=== PATIENT | male | born 1975 | race Caucasian/White ===

== ENCOUNTER 2020-06-14 04:43 | Emergency (ER) | payer OTHER ==
[~2020-06-14] VITALS: Ht 200.7 cm; Wt 115.7 kg
[~2020-06-14 04:43] MED LIST: ABILIFY MAINTE300 M1 IM; ABILIFY20 MG PO; ALDACTONE25 MG PO; ARIPIPRAZOLE5 MG PO; ATIVAN1 MG PO; KEFLEX500 M1 PO; KRISTALOSE20 GM PO; NORVASC5 MG PO; PREDNISONE 10 M10 MG PO; PROBIOTIC1 EAC1 PO; PROTONIX40 M1 PO; ROBAXIN 750 MG750 M1 PO; XANAX1 MG PO; XIFAXAN550 M1 PO; ZANAFLEX4 MG PO; ZOLOFT25 MG PO
[2020-06-14 04:54] VITALS: BP 133/82
[2020-06-14] MEDS ORDERED: GABAPENTIN100 MG PO (05:21)
[2020-06-14] MEDS ORDERED: HYDROCODON-ACE1 EAC7 PO (05:21)
== END 2020-06-14 05:31 | disposition home or self-care (01) ==
LOC: M.ERS 04:43
DX: B02.29 Other postherpetic nervous system involvement (principal); Z88.6 Allergy status to analgesic agent; Z91.018 Allergy to other foods

== ENCOUNTER 2020-07-24 07:22 | Emergency (ER) | payer OTHER ==
[~2020-07-24] VITALS: Ht 200.7 cm; Wt 117.9 kg
[~2020-07-24 07:22] MED LIST changes: +GABAPENTIN100 MG PO; +HYDROCODON-ACE1 EAC7 PO
[2020-07-24] MEDS ORDERED: FLEXERIL PO (08:00)
[2020-07-24] MEDS ORDERED: GABAPENTIN 100100 MG PO (08:00)
[2020-07-24] MEDS ORDERED: NORCO 5-325 TA1 EAC2 PO (08:00)
[2020-07-24 08:07] VITALS: BP 140/78
== END 2020-07-24 08:08 | disposition home or self-care (01) ==
LOC: M.ERS 07:22
DX: M54.5 Low back pain (principal); Z91.018 Allergy to other foods; Z88.6 Allergy status to analgesic agent; Z90.49 Acquired absence of other specified parts of digestive tract; Z90.89 Acquired absence of other organs

== ENCOUNTER 2020-08-12 06:33 | Emergency (ER) | payer OTHER ==
[~2020-08-12] VITALS: Ht 200.7 cm; Wt 104.3 kg
[~2020-08-12 06:33] MED LIST changes: +FLEXERIL PO; +GABAPENTIN 100100 MG PO; +NORCO 5-325 TA1 EAC2 PO
[2020-08-12] MEDS ORDERED: MUSCLE RELAXANT (06:46)
[2020-08-12] MEDS ORDERED: FLEXERIL PO (07:21)
[2020-08-12] MEDS ORDERED: IBUPROFEN 800800 M1 PO (07:21)
[2020-08-12] MEDS ORDERED: NORCO 5-325 TA1 EAC2 PO (07:21)
[2020-08-12 07:28] VITALS: BP 138/72
== END 2020-08-12 07:28 | disposition home or self-care (01) ==
LOC: M.ERS 06:33
DX: M54.5 Low back pain (principal); F17.210 Nicotine dependence, cigarettes, uncomplicated; Z88.6 Allergy status to analgesic agent; Z91.018 Allergy to other foods; Z90.89 Acquired absence of other organs; Z90.49 Acquired absence of other specified parts of digestive tract

== ENCOUNTER 2020-08-18 22:54 | Emergency (ER) | payer OTHER ==
[~2020-08-18] VITALS: Ht 200.7 cm; Wt 99.8 kg
[~2020-08-18 22:54] MED LIST changes: +IBUPROFEN 800800 M1 PO; +MUSCLE RELAXANT
[2020-08-18] MEDS ORDERED: BACLOFEN 10MG T10 MG PO (23:29)
[2020-08-18] MEDS ORDERED: FLEXERIL PO (23:29)
[2020-08-18 23:46] VITALS: BP 146/72
== END 2020-08-18 23:46 | disposition home or self-care (01) ==
LOC: M.ERS 22:54
DX: M54.6 Pain in thoracic spine (principal); Z88.6 Allergy status to analgesic agent; Z91.018 Allergy to other foods; Z90.49 Acquired absence of other specified parts of digestive tract; Z90.89 Acquired absence of other organs

== ENCOUNTER 2020-08-25 04:17 | Emergency (ER) | payer OTHER ==
[~2020-08-25] VITALS: Ht 200.7 cm; Wt 103.0 kg
[~2020-08-25 04:17] MED LIST changes: +BACLOFEN 10MG T10 MG PO
[2020-08-25 04:25] VITALS: BP 129/79
[2020-08-25] MEDS ORDERED: MEDROL DOSPAK21 TA1 PO (04:28)
[2020-08-25] MEDS ORDERED: DRIZALMA SPRINK60 MG PO (04:31)
[2020-08-25] MEDS ORDERED: HYDROCODON-ACE1 EAC7 PO (04:52)
[2020-08-25] MEDS ORDERED: TORADOL 10 MG T10 MG PO (04:52)
== END 2020-08-25 05:06 | disposition home or self-care (01) ==
LOC: M.ERS 04:17
DX: G89.29 Other chronic pain (principal); M54.5 Low back pain; Z88.6 Allergy status to analgesic agent; Z79.899 Other long term (current) drug therapy; Z90.49 Acquired absence of other specified parts of digestive tract

== ENCOUNTER → 2020-09-01 | Outpatient (CLI) | payer OTHER ==
[~2020-09-01] MED LIST changes: +DRIZALMA SPRINK60 MG PO; +MEDROL DOSPAK21 TA1 PO; +NEURONTIN 300M300 M2 PO; +TORADOL 10 MG T10 MG PO
== END ==
LOC: M.PC 08:00
PROVIDERS: ATTEND Physical Medicine & Rehabilitation
DX: M47.816 Spondylosis without myelopathy or radiculopathy, lumbar region (principal); M51.36 Other intervertebral disc degeneration, lumbar region; M47.814 Spondylosis without myelopathy or radiculopathy, thoracic region; M51.24 Other intervertebral disc displacement, thoracic region; Z88.8 Allergy status to other drugs, medicaments and biological substances; Z79.899 Other long term (current) drug therapy

== ENCOUNTER 2020-12-11 07:36 | Emergency (ER) | payer OTHER ==
[~2020-12-11] VITALS: Ht 200.7 cm; Wt 106.6 kg
[2020-12-11 07:43] VITALS: BP 122/72
[2020-12-11] MEDS ORDERED: MOBIC7.5 MG PO (07:53)
[2020-12-11] MEDS ORDERED: MEDROLDOSEPACK PO (07:53)
== END 2020-12-11 08:05 | disposition home or self-care (01) ==
LOC: M.ERS 07:36
DX: G89.29 Other chronic pain (principal); M54.5 Low back pain; Z88.6 Allergy status to analgesic agent; Z91.018 Allergy to other foods; Z90.49 Acquired absence of other specified parts of digestive tract; Z90.89 Acquired absence of other organs

== ENCOUNTER 2021-02-10 09:10 | Inpatient (IN) | payer OTHER ==
[2021-02-10] VITALS (11 sets, daily range): BP systolic 81–109; BP diastolic 51–70
[~2021-02-10] VITALS: Ht 200.7 cm; Wt 106.1 kg
[~2021-02-10 09:10] MED LIST changes: +MEDROLDOSEPACK PO; +MOBIC7.5 MG PO
[2021-02-10 09:44] LABS: HEMATOCRIT 42.8 % (42.0-52.0); HEMOGLOBIN 14.5 gm/dL (14.0-18.0); MCH 31.6 pg (26.0-34.0); MCHC 33.9 g/dL (28.0-37.0); MCV 93.4 fL (80.0-100.0); MPV 9.1 fl. (7.2-11.1); NUCLEATED RBCS 0 /100WBC; PLATELET COUNT* 141 thou/uL (150-400); RBC 4.58 mil/uL (4.50-6.00); RDW-CV 13.5 % (10.5-14.5); WBC 20.1 thou/uL (4.0-11.0)
[2021-02-10 09:54] LABS: CALCIUM 8.6 mg/dL (8.5-10.1); CREATININE 1.8 mg/dL (0.6-1.3); POTASSIUM 3.5 mmol/L (3.5-5.1)
[2021-02-10 10:04] LABS: ALBUMIN 3.8 g/dL (3.4-5.0); TOTAL BILIRUBIN 1.3 mg/dL (<0.1-1.0); TOTAL PROTEIN 7.2 g/dL (6.4-8.2)
[2021-02-10 10:08] LABS: URINE BILIRUBIN NEGATIVE (Negative); URINE BLOOD 1+ (Negative); URINE CLARITY CLEAR; URINE COLOR YELLOW; URINE GLUCOSE-RANDOM NEGATIVE (Negative); URINE KETONES NEGATIVE (Negative); URINE LEUKOCYTES-REFLEX NEGATIVE (Negative); URINE NITRITE-REFLEX NEGATIVE (Negative); URINE PROTEIN NEGATIVE (Negative); URINE SPECIFIC GRAVITY 1.025 (1.005-1.030); URINE UROBILINOGEN >= 8.0 E.U./dl (0.2-1.0)
[2021-02-10 10:13] LABS: ABSOLUTE EOSINOPHILS 0.2 thou/uL (0.0-0.7); ABSOLUTE LYMPHOCYTES 1.6 thou/uL (0.8-5.3); ABSOLUTE MONOCYTES 1.6 thou/uL (0.0-1.2); ABSOLUTE NEUTROPHILS 16.7 thou/uL (1.6-8.1); ATYPICAL LYMPHS 2 %; PLATELET ESTIMATE ADEQUATE
[2021-02-10 10:17] LABS: AMP/METHAMP Negative (Negative); BARBITURATES Negative (Negative); BENZODIAZEPINES Negative (Negative); COCAINE Negative (Negative); METHADONE POSITIVE (Negative); OPIATES Negative (Negative); PCP Negative (Negative); THC Negative (Negative)
[2021-02-10] MEDS ORDERED: SILDENAFIL20 MG PO (10:41)
[2021-02-10] MEDS ORDERED: NEURONTIN100 MG PO (10:41)
[2021-02-10] MEDS ORDERED: NEURONTIN 400400 M1 PO (11:12)
[2021-02-10] MEDS ORDERED: METHADONE (11:24)
--- NOTE | 2021-02-10 14:14 | EKG ---
[place] [address] ELECTROCARDIOGRAM REPORT Name: CARISSA WHATLEY Room: [address] ADM IN .R.#: [id number] Admission: 02/10/21 Attend Phys: Enrico Bermudez Discharge: Date of : 79 Date of Service: 02/10/21912 Report #: [id number] THIS REPORT FOR: //name// [facility] ED Test Date: 2021-02-10 Test Time: 09:13:23 Pat Name: CARISSA WHATLEY Department: Room: [facility] Gender: M Process Controls Technician: KEANU : 1975 Requested By: Ricardo Sanchez Order Number: [id number] MD: Manohar Brown Measurements Intervals [place] Rate: 112 P: -14 [place]: 168 QRS: -17 QRSD: 123 T: 68 QT: 368 QTc: 503 Interpretive Statements Sinus tachycardia Probable left atrial enlargement Right bundle branch block No previous ECG available for comparison Electronically Signed On 02-10-2021 14:13:43 CDT by Manohar Brown [email or web address] <ELECTRONICALLY SIGNED> By: Manohar Brown MD, [facility] 02/10/21 1413 2 09 Manohar Brown MD, [facility] /EPI
[2021-02-11] VITALS (15 sets, daily range): BP systolic 93–123; BP diastolic 54–75
[2021-02-11 09:19] LABS: ABSOLUTE EOSINOPHILS 0.1 thou/uL (0.0-0.7); ABSOLUTE LYMPHOCYTES 1.9 thou/uL (0.8-5.3); ABSOLUTE MONOCYTES 0.8 thou/uL (0.0-1.2); ABSOLUTE NEUTROPHILS 7.7 thou/uL (1.6-8.1); BASOPHILS 0.3 %; EOSINOPHILS 0.7 %; HEMATOCRIT 36.8 % (42.0-52.0); HEMOGLOBIN 12.9 gm/dL (14.0-18.0); LYMPHOCYTES 17.9 %; MCH 31.7 pg (26.0-34.0); MCHC 35.1 g/dL (28.0-37.0); MCV 90.2 fL (80.0-100.0); MONOCYTES 7.5 %; MPV 9.1 fl. (7.2-11.1); NUCLEATED RBCS 0 /100WBC; PLATELET COUNT* 117 thou/uL (150-400); POLYS 73.6 %; RBC 4.08 mil/uL (4.50-6.00); RDW-CV 13.2 % (10.5-14.5); WBC 10.5 thou/uL (4.0-11.0)
[2021-02-11 09:53] LABS: ALBUMIN 3.2 g/dL (3.4-5.0); CALCIUM 8.6 mg/dL (8.5-10.1); CREATININE 0.9 mg/dL (0.6-1.3); TOTAL BILIRUBIN 0.8 mg/dL (<0.1-1.0); TOTAL PROTEIN 6.1 g/dL (6.4-8.2); TROPONIN-I LEVEL 0.12 ng/mL (<0.06)
--- NOTE | 2021-02-11 12:04 | EKG ---
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: NIC : 1975 Requested By: Babatunde Mckenzie Order Number: [id number] Reading MD: Manhoar Brown Measurements Intervals [place] Rate: 64 P: 78 [place]: 181 QRS: 75 QRSD: 98 T: 66 QT: 441 QTc: 455 Interpretive Statements Sinus rhythm Borderline low voltage, extremity leads RSR' in V1 or V2, right VCD or RVH Compared to ECG 02/10/2021 09:13:23 Sinus tachycardia no longer present Electronically Signed On 02-11-2021 12:03:50 CDT by Manohar Brown [email or web address] <ELECTRONICALLY SIGNED> By: Manohar Brown MD, [facility] 02/11/21 1203 5 5 Manohar Brown MD, [facility] /EPI
--- NOTE | 2021-02-11 13:39 | 2DMMODE ---
[place] [address] 2 D/M-MODE ECHOCARDIOGRAM Name: CARISSA WHATLEY Robert Room: [address] IN [facility]#: [id number] Admission: 02/10/21 Attend Phys: Enrico Bermudez Discharge: Date of : 79 Date of Service: 02/11/21 1339 Report #: [id number] THIS REPORT FOR: cc: Francis Medina,Francis Keith,Manohar Mason MD [facility] ~ APPROVED REPORT Study performed: 02/11/2021 09:58:14 EXAM: Comprehensive 2D, Doppler, and color-flow Echocardiogram Patient Location: In-Patient Room #: 005 Status: routine BSA: 2.40 HR: 78 bpm BP: 102/72 mmHg Rhythm: NSR Other Information Study Quality: Good Indications LOC, overdose 2D Dimensions IVSd: 11.28 (7-11mm) LVOT Diam: 20.28 (18-24mm) LVDd: 44.64 mm PWd: 9.67 (7-11mm) Ascending Ao: 30.79 (22-36mm) LVDs: 32.20 (25-40mm) Aortic Root: 30.70 mm Volumes Left Atrial Volume (Systole) LA ESV Index: 26.00 mL/m2 Aortic Valve AoV Peak Levar.: 1.27 m/s AO Peak Gr.: 6.46 mmHg LVOT Max P.94 mmHg AO Mean Gr.: 3.79 mmHg LVOT Mean P.14 mmHg LVOT Max V: 0.99 m/s AO V2 VTI: 24.73 cm LVOT Mean V: 0.69 m/s EMELINA (VTI): 2.70 cm2 LVOT V1 VTI: 20.67 [place] [address] 2 D/M-MODE ECHOCARDIOGRAM Name: CARISSA WHATLEY Room: [address]#: [id number] Admission: 02/10/21 Attend Phys: Enrico Bermudez Discharge: Date of : 79 Date of Service: 02/11/21 1339 Report #: [id number] Mitral Valve E/A Ratio: 1.55 MV Decel. Time: 194.76 ms MV E Max Levar.: 0.98 m/s MV PHT: 56.48 ms MVA (PHT): 3.90 cm2 TDI E/Lateral E': 7.00 E/Medial E': 8.91 Medial E' Levar.: 0.11 m/s Lateral E' Levar.: 0.14 m/s Pulmonary Valve PV Peak Levar.: 1.12 m/s PV Peak Gr.: 4.98 mmHg Tricuspid Valve RAP Estimate: 15.00 mmHg TR Peak Gr.: 20.97 mmHg RVSP: 35.00 mmHg PA Pressure: 35.00 mmHg Left Ventricle The left ventricle is normal size. paradoxical septal motion There is normal left ventricular wall thickness. Left ventricular systolic function is normal. The left ventricular ejection fraction is within the normal range. LVEF is 50-55%. The left ventricular diastolic function is normal. Right Ventricle Right ventricle is severely dilated. Right ventricle is moderately hypokinetic. Atria The left atrium size is normal. Right atrium is moderately dilated. Aortic Valve The aortic valve is normal in structure. No aortic regurgitation is present. There is no aortic valvular stenosis. Mitral Valve The mitral valve is normal in structure. Trace mitral regurgitation. No evidence of mitral valve stenosis. Tricuspid Valve The tricuspid valve is normal in structure. Mild tricuspid regurgitation estimated pa pressure 35 [place] [address] 2 D/M-MODE ECHOCARDIOGRAM Name: WHATLEYCARISSA Robert Room: [address]#: [id number] Admission: 02/10/21 Attend Phys: Enrico Bermudez Discharge: Date of : 79 Date of Service: 02/11/21 1339 Report #: [id number] Pulmonic Valve The pulmonary valve is normal in structure. There is no pulmonic valvular stenosis. Mild pulmonic regurgitation. Great Vessels The aortic root is normal in size. IVC is dilated and collapses <50% with inspiration. Pericardium There is no pericardial effusion. <Conclusion> LVEF is 50-55%. Right ventricle is severely dilated. Right ventricle is moderately hypokinetic. Mild tricuspid regurgitation estimated pa pressure 35 mm Hg There is no pulmonic valvular stenosis. Mild pulmonic regurgitation. <ELECTRONICALLY SIGNED> By: Manohar Brown MD, FACC 02/11/21 1339 1339 1339 Manohar Brown MD, FACC /INF
[2021-02-12] VITALS (10 sets, daily range): BP systolic 103–123; BP diastolic 48–76
[2021-02-12 05:02] LABS: HEMATOCRIT 36.1 % (42.0-52.0); HEMOGLOBIN 12.3 gm/dL (14.0-18.0); MCH 31.2 pg (26.0-34.0); MCV 91.7 fL (80.0-100.0); MPV 9.3 fl. (7.2-11.1); RBC 3.94 mil/uL (4.50-6.00); RDW-CV 13.5 % (10.5-14.5); WBC 5.9 thou/uL (4.0-11.0)
[2021-02-12 05:19] LABS: CREATININE 0.9 mg/dL (0.6-1.3); POTASSIUM 4.4 mmol/L (3.5-5.1)
[2021-02-12 05:26] LABS: CHOLESTEROL 88 mg/dL (<200); HDL CHOLESTEROL 37 mg/dL (>40); LDL CHOLESTEROL 46 mg/dL (<100); TC:HDL 2.4 Ratio (Not establshd); TRIGLYCERIDE 27 mg/dL (<150); TROPONIN-I LEVEL <0.06 ng/mL (<0.06); VLDL 5 mg/dL (<40)
[2021-02-12 05:33] LABS: SERUM ASSESSMENT Clear
[2021-02-12 13:30] LABS: CALCIUM 8.5 mg/dL (8.5-10.1); CREATININE 0.9 mg/dL (0.6-1.3); POTASSIUM 4.3 mmol/L (3.5-5.1)
[2021-02-12 13:34] LABS: MAGNESIUM 1.8 mg/dL (1.8-2.4); PHOSPHORUS* 1.3 mg/dL (2.5-4.9)
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
== END 2021-02-12 15:30 | disposition home or self-care (01) | DRG 917 ==
LOC: M.ERS 09:10 → M.TBA-ER 10:52 → M.ICU 13:19
PROVIDERS: Emergency Medicine Emergency Medical Services; Internal Medicine; Internal Medicine Cardiovascular Disease; ADMIT Internal Medicine; ATTEND Internal Medicine
PROC: 02HV33Z Insertion of Infusion Device into Superior Vena Cava, Percutaneous Approach (ICD-10-PCS; principal; 2021-02-10)
DX: T40.3X1A Poisoning by methadone, accidental (unintentional), initial encounter (principal); N17.0 Acute kidney failure with tubular necrosis; G92 Toxic encephalopathy; J69.0 Pneumonitis due to inhalation of food and vomit; I21.A1 Myocardial infarction type 2; M62.82 Rhabdomyolysis; F41.9 Anxiety disorder, unspecified; I95.9 Hypotension, unspecified; T50.905A Adverse effect of unspecified drugs, medicaments and biological substances, initial encounter; Y92.89 Other specified places as the place of occurrence of the external cause; D72.829 Elevated white blood cell count, unspecified; Z20.822 Contact with and (suspected) exposure to COVID-19; Z90.49 Acquired absence of other specified parts of digestive tract; Z88.6 Allergy status to analgesic agent; Z88.8 Allergy status to other drugs, medicaments and biological substances; Z71.6 Tobacco abuse counseling; Z79.899 Other long term (current) drug therapy

== ENCOUNTER 2021-03-04 02:50 | Emergency (ER) | payer OTHER ==
[~2021-03-04] VITALS: Ht 200.7 cm; Wt 97.5 kg
[~2021-03-04 02:50] MED LIST changes: +METHADONE; +NEURONTIN 400400 M1 PO; +NEURONTIN100 MG PO; +SILDENAFIL20 MG PO
[2021-03-04] MEDS ORDERED: NEURONTIN 300M300 M2 PO (03:04)
[2021-03-04 03:34] LABS: ABSOLUTE EOSINOPHILS 0.3 thou/uL (0.0-0.7); ABSOLUTE LYMPHOCYTES 2.8 thou/uL (0.8-5.3); ABSOLUTE MONOCYTES 0.4 thou/uL (0.0-1.2); ABSOLUTE NEUTROPHILS 2.7 thou/uL (1.6-8.1); BASOPHILS 0.7 %; EOSINOPHILS 5.2 %; HEMATOCRIT 41.1 % (42.0-52.0); HEMOGLOBIN 14.4 gm/dL (14.0-18.0); LYMPHOCYTES 45.2 %; MCH 31.8 pg (26.0-34.0); MCV 90.6 fL (80.0-100.0); MPV 8.4 fl. (7.2-11.1); NUCLEATED RBCS 0 /100WBC; PLATELET COUNT* 160 thou/uL (150-400); POLYS 42.9 %; RBC 4.54 mil/uL (4.50-6.00); RDW-CV 13.6 % (10.5-14.5); WBC 6.3 thou/uL (4.0-11.0)
[2021-03-04 03:47] LABS: CALCIUM 9.4 mg/dL (8.5-10.1); CREATININE 1.3 mg/dL (0.6-1.3); POTASSIUM 3.3 mmol/L (3.5-5.1)
[2021-03-04 03:59] LABS: ALBUMIN 3.9 g/dL (3.4-5.0); TOTAL BILIRUBIN 0.7 mg/dL (<0.1-1.0); TOTAL PROTEIN 7.1 g/dL (6.4-8.2)
[2021-03-04 04:27] LABS: AMP/METHAMP Negative (Negative); BARBITURATES Negative (Negative); BENZODIAZEPINES Negative (Negative); COCAINE Negative (Negative); METHADONE Negative (Negative); OPIATES Negative (Negative); PCP Negative (Negative); THC Negative (Negative)
[2021-03-04 05:50] VITALS: BP 129/71
--- NOTE | 2021-03-04 11:15 | EKG ---
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 /EPI
== END 2021-03-04 05:50 | disposition home or self-care (01) ==
LOC: M.ERS 02:50
PROVIDERS: Personal Emergency Response Attendant
DX: F41.9 Anxiety disorder, unspecified (principal); R07.89 Other chest pain; I25.2 Old myocardial infarction; Z88.6 Allergy status to analgesic agent; Z91.018 Allergy to other foods